=== PATIENT | male | born 1955 | race Caucasian/White ===

== ENCOUNTER 2018-12-20 09:21 | Emergency (ER) | payer BC ==
--- OUTSIDE RECORDS SUMMARY | 2018-12-20 09:23 | XMS REPORT ---
:1955 [facility] Address [address] [place] [address] Dr. Santiago [address] [place] [id number] Care Team Providers Name Role Phone Unavailable Unavailable Unavailable Problems This patient has no known problems. Allergies, Adverse Reactions, Alerts This patient has no known allergies or adverse reactions. Medications This patient has no known medications.
[2018-12-20] MEDS ORDERED: LIDOCAINE 1% MPF 5 ML VIAL ONE (09:59)
[2018-12-20] MEDS ORDERED: BUPIVACAINE 0.5% PF 10 ML VIAL ONE (09:59)
[2018-12-20] MEDS ORDERED: TETANUS & DIPHTHERIA TOX,ADULT 0.5 ML VIAL ONE (10:00)
--- NOTE | 2018-12-20 11:03 | EDPHYS ---
Physician Documentation [facility] Name: Tai Romero Jr Age: 63 yrs Sex: Male : 1955 Arrival Date: 12/20/2018 Time: 09:24 Bed 8 Private MD: out of town, doctor ED Physician Kayden Guzmán HPI: 12/20 11:05 This 63 yrs old Male presents to ER via Ambulatory with complaints of Finger kb Lac. 11:11 The patient has a laceration related to: cut on pocket knife occurred at home, and kb there are no complicating factors. The laceration(s) is(are) located on the left thumb. Onset: The symptoms/episode began/occurred just prior to arrival. Associated signs and symptoms: The patient has no apparent associated signs or symptoms. The patient has not experienced similar symptoms in the past. The patient has not recently seen a physician. 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 Historical: - Allergies: 09:29 No Known Allergies; tw2 - Home Meds: 09:29 enalapril maleate 20 mg Oral tab 1 tab once daily [Active]; verapamil 240 mg Oral C24P tw2 1 cap once daily [Active]; triamterene-hydrochlorothiazid 37.5-25 mg Oral tab 1 tab once daily [Active]; allopurinol 300 mg Oral tab 1 tab once daily [Active]; metformin 1,000 mg Oral TG24 1 tab 2 times per day [Active]; Crestor 20 mg oral tab 1 tab once daily [Active]; - PMHx: 09:29 Hypertension; tw2 - PSHx: 09:29 Knee surgery; heel spur; tw2 - Immunization history:: Last tetanus immunization: unknown. - Social history:: Smoking status: . - Ebola Screening: : Patient denies travel to an Ebola-affected area in the 21 days before illness onset. ROS: 11:04 Constitutional: Negative for fever, chills, and weight loss, Cardiovascular: Negative kb for chest pain, palpitations, and edema, Respiratory: Negative for shortness of breath, cough, wheezing, and pleuritic chest pain, Abdomen/GI: Negative for abdominal pain, nausea, vomiting, diarrhea, and constipation, Back: Negative for injury and pain, MS/Extremity: Negative for injury and deformity, Neuro: Negative for headache, weakness, numbness, tingling, and seizure. 11:04 Skin: Positive for laceration(s), of the left thumb. Exam: 11:04 Constitutional: This is a well developed, well nourished patient who is awake, alert, kb and in no acute distress. Head/Face: Normocephalic, atraumatic. Neck: Trachea midline, no thyromegaly or masses palpated, and no cervical lymphadenopathy. Supple, full range of motion without nuchal rigidity, or vertebral point tenderness. No Meningismus. Chest/axilla: Normal chest wall appearance and motion. Nontender with no deformity. No lesions are appreciated. Cardiovascular: Regular rate and rhythm with a normal S1 and S2. No gallops, murmurs, or rubs. Normal PMI, no JVD. No pulse deficits. Respiratory: Lungs have equal breath sounds bilaterally, clear to auscultation and percussion. No rales, rhonchi or wheezes noted. No increased work of breathing, no retractions or nasal flaring. Abdomen/GI: Soft, non-tender, with normal bowel sounds. No distension or tympany. No guarding or rebound. No evidence of tenderness throughout. MS/ Extremity: Pulses equal, no cyanosis. Neurovascular intact. Full, normal range of motion. Neuro: Awake and alert, GCS 15, oriented to person, place, time, and situation. Cranial nerves II-XII grossly intact. Motor strength 5/5 in all extremities. Sensory grossly intact. Cerebellar exam normal. Normal gait. 11:04 Skin: injury, laceration(s), the wound is approximately 2 cm(s), of the left thumb, that can be described as clean, no foreign body, irregular, without bleeding. Vital Signs: 09:26 BP 150 / 110; Pulse 70; Resp 18; Temp 97.9; Pulse Ox 99% on R/A; Weight 113.4 kg (R); tw2 Height 6 ft. 1 in. (185.42 cm); Pain 5/10; 11:18 BP 147 / 95; Pulse 79; Resp 16; Temp 98; Pulse Ox 99% ; bp 09:26 Body Mass Index 32.98 (113.40 kg, 185.42 cm) tw2 Procedures: 10:28 Nerve block: (digital) of left thumb Medication: Lidocaine 1% without epinephrine kb Marcaine 0.5%, Amount: 4.5 mls were injected, Effect: the patient has resolution of the pain, Set up for procedure. Performed by Izzy CAGLE Patient tolerated well. Laceration: 11:01 Wound Repair of 2cm ( 0.8in ) subcutaneous laceration to left thumb. Irregularly kb shaped.. Skin/tissue flap noted.. Distal neuro/vascular/tendon intact. Anesthesia: Digital block administered with 1% lidocaine. Wound prep: Extensive cleansing with hibiclenz by me, Wound irrigation with saline by me. Skin closed with 3 5-0 Prolene using simple sutures and sterile technique. Dressed with Neosporin, tube gauze. Patient tolerated well. MDM: 09:45 Patient medically screened. kb 11:00 Data reviewed: vital signs, nurses notes. Data interpreted: Pulse oximetry: on room air kb is 99 %. Interpretation: normal. Counseling: I had a detailed discussion with the patient and/or guardian regarding: the historical points, exam findings, and any diagnostic results supporting the discharge/admit diagnosis, the need for outpatient follow up, a family practitioner, to return to the emergency department if symptoms worsen or persist or if there are any questions or concerns that arise at home. 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 Exp: bp 07/14/2020. Lot #: [id number]. } Route: IM; Site: left deltoid; 11:06 Follow up: Response: No adverse reaction bp 10:04 Drug: Lidocaine (1 %) 1 vials {Note: AT B/S FOR PROVIDER.} Volume: 5 ml; Route: bp Infiltration; 10:04 Drug: Bupivacaine (0.5 %) 1 vials {Note: AT B/S FOR PROVIDER.} Volume: 10 ml; Route: bp Infiltration; Disposition: 11:54 Co-signature as Attending Physician, Kayden Guzmán MD. rn Disposition: 12/20/18 11:02 Discharged to Home. Impression: Laceration without foreign body of left thumb without damage to nail. - Condition is Stable. - Discharge Instructions: Laceration Care, Adult, [id number]. - Medication Reconciliation Form, Thank You Letter, Antibiotic Education, Prescription Opioid Use form. - Follow up: Emergency Department; When: As needed; Reason: Worsening of condition. Follow up: Private Physician; When: 2 - 3 days; Reason: Recheck today's complaints, Continuance of care, Re-evaluation by your physician. - Notes: Keep clean and dry Watch for signs of infection as discussed Have sutures removed in 7-10 days Signatures: Izzy Warren, HEAD OF QUALITY-C HEAD OF QUALITY-Ckb Kayden Guzmán MD MD rn Alma Blunt RN RN tw2 Oscar Patterson RN RN bp Corrections: (The following items were deleted from the chart) 11:19 11:02 12/20/2018 11:02 Discharged to Home. Impression: Laceration without foreign body bp of left thumb without damage to nail. Condition is Stable. Forms are Medication Reconciliation Form, Thank You Letter, Antibiotic Education, Prescription Opioid Use. Follow up: Emergency Department; When: As needed; Reason: Worsening of condition. Follow up: Private Physician; When: 2 - 3 days; Reason: Recheck today's complaints, Continuance of care, Re-evaluation by your physician. kb
--- NOTE | 2018-12-20 11:03 | ER ---
Nurse's Notes [facility] Name: Tai Romero Jr Age: 63 yrs Sex: Male : 1955 Arrival Date: 12/20/2018 Time: 09:24 Bed 8 Private MD: out of town, doctor Diagnosis: Laceration without foreign body of left thumb without damage to nail Presentation: 12/20 09:25 Presenting complaint: Patient states: i cut my LEFT thumb on my pocket knife about 30 tw2 minutes ago. Transition of care: patient was not received from another setting of care. Onset of symptoms was December 20, 2018. Risk Assessment: Do you want to hurt yourself or someone else? Patient reports no desire to harm self or others. Initial Sepsis Screen: Does the patient meet any 2 criteria? No. Patient's initial sepsis screen is negative. Does the patient have a suspected source of infection? No. Patient's initial sepsis screen is negative. Care prior to arrival: None. 09:25 Method Of Arrival: Ambulatory tw2 09:25 Acuity: DONA 4 tw2 Triage Assessment: 09:29 General: Appears in no apparent distress. Behavior is calm, cooperative, appropriate tw2 for age. Pain: Complains of pain in palmar aspect of distal phalanx of left thumb. Historical: - Allergies: 09: No Known Allergies; tw2 - Home Meds: :29 enalapril maleate 20 mg Oral tab 1 tab once daily [Active]; verapamil 240 mg Oral C24P tw2 1 cap once daily [Active]; triamterene-hydrochlorothiazid 37.5-25 mg Oral tab 1 tab once daily [Active]; allopurinol 300 mg Oral tab 1 tab once daily [Active]; metformin 1,000 mg Oral TG24 1 tab 2 times per day [Active]; Crestor 20 mg oral tab 1 tab once daily [Active]; - PMHx: 09:29 Hypertension; tw2 - PSHx: : Knee surgery; heel spur; tw2 - Immunization history:: Last tetanus immunization: unknown. - Social history:: Smoking status: . - Ebola Screening: : Patient denies travel to an Ebola-affected area in the 21 days before illness onset. Screenin:41 Abuse screen: Denies threats or abuse. Denies injuries from another. Nutritional bp screening: No deficits noted. Tuberculosis screening: No symptoms or risk factors identified. Fall Risk None identified. Assessment: 09:30 General: Appears in no apparent distress. comfortable, Behavior is calm, cooperative, bp appropriate for age. Pain: Complains of pain in palmar aspect of distal phalanx of left thumb. Neuro: No deficits noted. Cardiovascular: No deficits noted. Respiratory: No deficits noted. GI: No signs and/or symptoms were reported involving the gastrointestinal system. : No signs and/or symptoms were reported regarding the genitourinary system. EENT: No deficits noted. Derm: No deficits noted. Musculoskeletal: No deficits noted. Injury Description: Laceration sustained to palmar aspect of distal phalanx of left thumb is clean, full thickness, 0.5 to 2.5 cm long, not bleeding, was sustained 30-60 minutes ago. a small amount of bleeding noted at this time. Vital Signs: 09:26 BP 150 / 110; Pulse 70; Resp 18; Temp 97.9; Pulse Ox 99% on R/A; Weight 113.4 kg (R); tw2 Height 6 ft. 1 in. (185.42 cm); Pain 5/10; 11:18 BP 147 / 95; Pulse 79; Resp 16; Temp 98; Pulse Ox 99% ; bp 09:26 Body Mass Index 32.98 (113.40 kg, 185.42 cm) tw2 ED Course: 09:24 Patient arrived in ED. ag5 09:25 out of town, doctor is Private Physician. ag5 09:26 Triage completed. tw2 09:26 Arm band placed on. tw2 09:40 Oscar Patterson, MAURILIO is Primary Nurse. bp 09:41 Patient has correct armband on for positive identification. Bed in low position. Call bp light in reach. Side rails up X2. 09:45 Izzy Warren FNP-C [facility]. kb 09:45 Kayden Guzmán MD is Attending Physician. kb 11:00 Assist provider with laceration repair on left thumb that was 2.5 cm. or less using bp sutures. Set up tray. Performed by Izzy CAGLE Dressed with Neosporin, Patient tolerated well. 11:17 Patient did not have IV access during this emergency room visit. 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 Exp: bp 07/14/2020. Lot #: [id number]. } Route: IM; Site: left deltoid; 11:06 Follow up: Response: No adverse reaction bp 10:04 Drug: Lidocaine (1 %) 1 vials {Note: AT B/S FOR PROVIDER.} Volume: 5 ml; Route: bp Infiltration; 10:04 Drug: Bupivacaine (0.5 %) 1 vials {Note: AT B/S FOR PROVIDER.} Volume: 10 ml; Route: bp Infiltration; Outcome: 11:02 Discharge ordered by MD. fernandez 11:18 Discharged to home ambulatory. bp 11:18 Condition: stable 11:18 Discharge instructions given to patient, Instructed on discharge instructions, follow up and referral plans. wound care, Demonstrated understanding of instructions, follow-up care, wound care. 11:19 Patient left the ED. bp Signatures: Izzy Warren, SPEECH COMMUNICATION INSTRUCTOR-C SPEECH COMMUNICATION INSTRUCTOR-CkAlma Reyes RN RN tw2 Oscar Patterson, RN RN bp Dawson Denton ag5
[2018-12-20 11:24] VITALS: O2SAT 99
[2018-12-20 11:25] VITALS: BP 147/95; TEMP 98
== END 2018-12-20 11:19 | disposition home or self-care (01) ==
LOC: ER 09:21
PROC: 0JQK0ZZ Repair Left Hand Subcutaneous Tissue and Fascia, Open Approach (ICD-10-PCS; principal; 2018-12-20)
DX: S61.012A Laceration without foreign body of left thumb without damage to nail, initial encounter (principal); W26.0XXA Contact with knife, initial encounter; Y93.9 Activity, unspecified; Y92.009 Unspecified place in unspecified non-institutional (private) residence as the place of occurrence of the external cause; Z23 Encounter for immunization; I10 Essential (primary) hypertension
CPT/HCPCS: 64450; 90471; 90714; 99283